=== PATIENT | male | born 1980 | race Caucasian/White ===

== ENCOUNTER → 2023-10-06 | Outpatient (CLI) | payer OTHER ==
--- NOTE | 2023-10-06 11:07 | XR ---
EXAM TYPE: LUMBAR SPINE X RAY SERIES COMPARISON: NONE HISTORY: Pain TECHNIQUE: 4 views are submitted. FINDINGS: Alignment is anatomic. The pedicles are intact. The transverse processes are intact. There is no s pondylolysis or spondylolisthesis. Multilevel hypertrophic spurring. Degenerative disc disease L5-S1 . Facet arthropathy L4-L5 S1. IMPRESSION: 1. Multilevel hypertrophic spurring with facet arthropathy L4-5 and L5-S1. Suspect foraminal encroach ment. 2. Mild degenerative disc disease L5-S1..
== END | disposition home or self-care (01) ==
LOC: RADXRMAIN 10:23
PROVIDERS: ATTEND Family Medicine
DX: M47.817 Spondylosis without myelopathy or radiculopathy, lumbosacral region (principal); M51.37 Other intervertebral disc degeneration, lumbosacral region
CPT/HCPCS: 72110

== ENCOUNTER 2024-04-15 18:46 | Emergency (ER) | payer OTHER ==
[2024-04-15 20:02] VITALS: RESP 20
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
[2024-04-15] MEDS: HYDROmorphone 1 MG/ML 1 ML SYRINGE IVP STA (21:53)
[2024-04-15] MEDS: HYDROmorphone 0.5 MG/0.5 ML SYRINGE IVP STA (23:18)
[2024-04-16 00:07] VITALS: BP 209/130; PULSE 59; TEMP 98
== END 2024-04-15 23:28 | disposition home or self-care (01) ==
LOC: EC 18:46
DX: S42.301A Unspecified fracture of shaft of humerus, right arm, initial encounter for closed fracture (principal); F17.200 Nicotine dependence, unspecified, uncomplicated; Z88.0 Allergy status to penicillin; V89.2XXA Person injured in unspecified motor-vehicle accident, traffic, initial encounter; Y92.410 Unspecified street and highway as the place of occurrence of the external cause
CPT/HCPCS: 99283; 96374; 96376; 29105; J1170 ×2